=== PATIENT | female | born 1945 | race Caucasian/White ===

== ENCOUNTER 2021-09-06 07:54 | Outpatient (CLI) | payer MEDICARE, OTHER | END 2021-09-06 07:55 | disposition home or self-care (01) | LOC: CSHMAMMO 07:54 | PROVIDERS: ATTEND Physician Assistant | DX: Z12.31 Encounter for screening mammogram for malignant neoplasm of breast (principal); Z13.820 Encounter for screening for osteoporosis; M81.0 Age-related osteoporosis without current pathological fracture; M85.88 Other specified disorders of bone density and structure, other site | CPT/HCPCS: 77063; 77067; 77080 ==

== ENCOUNTER 2021-10-11 10:08 | Outpatient (CLI) | payer MEDICARE | END 2021-10-11 10:09 | disposition home or self-care (01) | LOC: CSHRAD 10:08 | PROVIDERS: ATTEND Internal Medicine Rheumatology | DX: M81.0 Age-related osteoporosis without current pathological fracture (principal) | CPT/HCPCS: 72070 ==

== ENCOUNTER 2023-12-29 14:50 | Outpatient (CLI) | payer MEDICARE | END 2023-12-29 14:51 | disposition home or self-care (01) | LOC: CSHMAMMO 14:50 | PROVIDERS: ATTEND Internal Medicine Rheumatology | DX: Z13.820 Encounter for screening for osteoporosis (principal); M81.0 Age-related osteoporosis without current pathological fracture | CPT/HCPCS: 77080 ==